=== PATIENT | female | born 1995 | race Two or more races ===

== ENCOUNTER 2025-06-01 22:16 | Inpatient (IN) | payer SELFPAY ==
[2025-06-01 23:18] LABS: MEAN PLATELET VOLUME 10.1 fL (9.4-12.3); NRBC ABSOLUTE 0.00 K/uL (0.00-0.02); NRBC PERCENT 0.0 /100WBC (0.0-0.2); PLATELET COUNT,PLT 242 K/uL (150-400); RED BLOOD CELL COUNT 4.22 M/uL (4.10-5.30); WHITE BLOOD CELL COUNT,WBC 18.71 K/uL (3.9-11.3)
[2025-06-01] MEDS ORDERED: Oxytocin/0.9 % Sodium Chloride 30 UNIT/500 ML BAG IV SCH (23:45)
[2025-06-01] MEDS ORDERED: Sodium Chloride 0.9% 10 ML Syringe FLUSH PRN (23:51)
[2025-06-01] MEDS ORDERED: Terbutaline 1 MG/ML SDV SUBCUT PRN (23:51)
[2025-06-01] MEDS ORDERED: Water For Irrigation,Sterile 1,000 ML Container IRR PRN (23:51)
[2025-06-01] MEDS ORDERED: Sodium Chloride 0.9% 2.5 ML Syringe FLUSH PRN (23:51)
[2025-06-01] MEDS ORDERED: Carboprost Tromethamine 250 MCG/1 mL Vial IM PRN (23:51)
[2025-06-02] MEDS: Lactated Ringers 1,000 ML IV SCH (00:42)
[2025-06-02 01:00] LABS: AMPHETAMINES SCREEN, URINE NEGATIVE (CUTOFF=500); BUPRENORPHINE SCREEN,URINE NEGATIVE (CUTOFF=10); METHADONE SCREEN, URINE NEGATIVE (CUTOFF=200); METHAMPHETAMINES SCREEN, URINE NEGATIVE (CUTOFF=500); OXYCODONE SCREEN,URINE NEGATIVE (CUT0FF=100); PCP SCREEN,URINE NEGATIVE (CUTOFF=25); THC SCREEN,URINE 20 NG/ML NEGATIVE (CUTOFF=50)
[2025-06-02] MEDS: Butorphanol 1 MG/ML SDV IVPUSH PRN (05:57)
[2025-06-02] MEDS ORDERED: dexmedeTOMIDine HCl 200 MCG/2 ML SDV ONE (06:41)
[2025-06-02] MEDS ORDERED: ePHEDrine 50 MG/ML SDV IVPUSH PRN (07:07)
[2025-06-02] MEDS: Ropivacaine HCl/PF 200 ML ONE (07:09)
[2025-06-02] MEDS ORDERED: dexmedeTOMIDine HCl 200 MCG/2 ML SDV EPIDUR SCH (07:15)
[2025-06-02] MEDS ORDERED: Ropivacaine HCl/PF 400 MG in Premix Bag 1 BAG EPIDUR SCH (07:15)
[2025-06-02] MEDS: Oxytocin/0.9 % Sodium Chloride 30 UNIT/500 ML BAG IV SCH (09:14)
[2025-06-02] MEDS ORDERED: Lanolin 100% Cream 7 GM Tube TOP PRN (09:29)
[2025-06-02] MEDS ORDERED: Benzocaine/Menthol 20%-0.5% Spray 78 GM Cannister TOP PRN (09:29)
[2025-06-02] MEDS ORDERED: Aluminum Hydroxide/Magnesium Hydroxide/Simethicone Susp 30 ML Cup PO PRN (09:29)
[2025-06-02] MEDS ORDERED: Witch Hazel Medicated Pads 40/Jar TOP PRN (09:29)
[2025-06-02 10:02] LABS: PH,UMBILICAL ARTERIAL 7.38 (7.18-7.38)
[2025-06-02 10:03] LABS: PH,UMBILICAL VENOUS 7.36 (7.25-7.45)
[2025-06-03 06:17] LABS: BASOPHILS ABSOLUTE AUTO 0.06 K/uL (0.00-0.20); BASOPHILS PERCENT AUTO 0.3 % (0.0-1.0); EOSINOPHILS ABSOLUTE AUTO 0.13 K/uL (0.00-0.45); EOSINOPHILS PERCENT AUTO 0.7 % (0.0-6.0); IMMATURE GRAN ABSOLUTE AUTO 0.23 K/uL (0.00-0.05); IMMATURE GRAN PERCENT AUTO 1.2 % (0.0-0.4); LYMPHOCYTES ABSOLUTE AUTO 4.29 K/uL (1.00-4.80); LYMPHOCYTES PERCENT AUTO 23.0 % (24.0-44.0); MEAN PLATELET VOLUME 9.9 fL (9.4-12.3); MONOCYTES ABSOLUTE AUTO 1.16 K/uL (0.00-0.80); MONOCYTES PERCENT AUTO 6.2 % (0.0-8.0); NEUTROPHILS ABSOLUTE AUTO 12.76 K/uL (1.80-7.70); NEUTROPHILS PERCENT AUTO 68.6 % (41.0-71.0); NRBC ABSOLUTE 0.00 K/uL (0.00-0.02); NRBC PERCENT 0.0 /100WBC (0.0-0.2); PLATELET COUNT,PLT 225 K/uL (150-400); RED BLOOD CELL COUNT 4.24 M/uL (4.10-5.30); WHITE BLOOD CELL COUNT,WBC 18.63 K/uL (3.9-11.3)
== END 2025-06-03 18:30 | disposition home or self-care (01) | DRG 807 ==
LOC: MW.OB 22:16 → MW.OBCHECK 22:16 → OBSVTOIN 23:51 → MW.OB 23:51 → MW.OBCHECK 23:51 → MW.OB 06-02 14:30
PROVIDERS: ADMIT Obstetrics & Gynecology; ATTEND Obstetrics & Gynecology
PROC: 10E0XZZ Delivery of Products of Conception, External Approach (ICD-10-PCS; principal; 2025-06-01)
PROC: 10907ZC Drainage of Amniotic Fluid, Therapeutic from Products of Conception, Via Natural or Artificial Opening (ICD-10-PCS; 2025-06-01)
PROC: 3E0R3BZ Introduction of Anesthetic Agent into Spinal Canal, Percutaneous Approach (ICD-10-PCS; 2025-06-01)
PROC: 0UQMXZZ Repair Vulva, External Approach (ICD-10-PCS; 2025-06-01)
DX: O69.1XX0 Labor and delivery complicated by cord around neck, with compression, not applicable or unspecified (principal); Z37.0 Single live birth; Z3A.39 39 weeks gestation of pregnancy; O71.82 Other specified trauma to perineum and vulva
CPT/HCPCS: 36415; 59025; 59409; 76805; 76805-26; 80305; 82803; 85025; 85027; 86850; 86900; 86901; 87081; A9270-GY; J0290; J0595; J0665; J2371; J2590; J2795; J7120